=== PATIENT | male | born 1965 | race Caucasian/White ===

== ENCOUNTER → 2017-03-17 | Outpatient (CLI) | payer OTHER, BC | LOC: FIMAGING 13:03 | DX: G35 Multiple sclerosis (principal) ==

== ENCOUNTER → 2017-03-20 | Outpatient (CLI) | payer OTHER, BC | LOC: FIMAGING 13:42 | PROVIDERS: ATTEND Orthopaedic Surgery | DX: M25.512 Pain in left shoulder (principal); M75.52 Bursitis of left shoulder; M75.22 Bicipital tendinitis, left shoulder; M19.012 Primary osteoarthritis, left shoulder; Z98.890 Other specified postprocedural states ==

== ENCOUNTER → 2017-04-21 | Outpatient (CLI) | payer OTHER, BC | LOC: FIMAGING 08:10 | PROVIDERS: ATTEND Orthopaedic Surgery | DX: M48.02 Spinal stenosis, cervical region (principal); G95.20 Unspecified cord compression; M50.321 Other cervical disc degeneration at C4-C5 level; M50.221 Other cervical disc displacement at C4-C5 level; M46.92 Unspecified inflammatory spondylopathy, cervical region ==

== ENCOUNTER → 2018-03-21 | Outpatient (CLI) | payer OTHER | LOC: FIMAGING 10:57 | DX: G35 Multiple sclerosis (principal) ==

== ENCOUNTER → 2018-05-28 | Outpatient (CLI) | payer OTHER | LOC: CIMAGING 16:35 | PROVIDERS: ATTEND Nurse Practitioner | DX: S92.352A Displaced fracture of fifth metatarsal bone, left foot, initial encounter for closed fracture (principal) | CPT/HCPCS: 73610-PO ==